=== PATIENT | female | born 1975 | race Caucasian/White ===

== ENCOUNTER → 2016-04-23 | Outpatient (CLI) | payer OTHER ==
[~2016-04-23] MED LIST: ALBUAER19 INH; CETI10TA10 PO; CLR10 PO; HYDR12.55 PO; IBUP1CAP9 PO; LEVO100T7 PO; LEVO125T72 PO; LEVO200T6 PO; MULT-506 PO; OXYC-57 PO; POTA-74 PO
[2016-04-23 16:37] LABS: BLOOD UREA NITROGEN 13 mg/dl (7-18); CALCIUM 8.9 mg/dl (8.5-10.1); CARBON DIOXIDE 27 mmol/L (21-32); CHLORIDE 104 mmol/L (98-107); CREATININE 0.84 mg/dl (0.60-1.20); GLUCOSE 101 mg/dl (70-99); POTASSIUM 4.1 mmol/L (3.5-5.1); SODIUM 140 mmol/L (136-145)
== END | disposition home or self-care (01) ==
LOC: C.LAB 14:55
PROVIDERS: ATTEND Family Medicine
DX: E87.6 Hypokalemia (principal); R53.81 Other malaise; R53.83 Other fatigue

== ENCOUNTER 2016-05-01 09:52 | Day surgery (SDC) | payer OTHER ==
[2016-04-23 14:30] VITALS: BMI 48.0
--- NOTE | 2016-04-23 15:01 | PAT Medication Instructions ---
Service Date Apr 23, 2016. Current Home Medication List Albuterol Inhaler (Ventolin Inhaler), 2 PUFFS INH QID PRN for Shortness of Breath Hydrochlorothiazide (Hydrochlorothiazide), 12.5 MG PO Q2D Ibuprofen (Ibuprofen), 200 MG PO PRN PRN for Pain Levothyroxine Sodium (Levothyroxine Sodium), 1 TAB PO 4 X WEEK Levothyroxine Sodium (Levothyroxine Sodium), 1 TAB PO 3XWEEK Loratadine (Claritin), 10 MG PO QAM Multivitamin (Multivitamin), 1 TAB PO QPM Potassium Chloride (Potassium Chloride Er), 30 MEQ PO Q2D Medication Instructions For Your Scheduled Surgery - Hold the following medications the morning of surgery: Hydrochlorothiazide (Hydrochlorothiazide), 12.5 MG PO Q2D Potassium Chloride (Potassium Chloride Er), 30 MEQ PO Q2D Loratadine (Claritin), 10 MG PO QAM Ibuprofen (Ibuprofen), 200 MG PO PRN PRN for Pain - Take the following medications the morning of surgery with a sip of water OTHERWISE NOTHING TO EAT OR DRINK AFTER MIDNIGHT: Albuterol Inhaler (Ventolin Inhaler), 2 PUFFS INH QID PRN for Shortness of Breath (USE IF NEEDED; BRING TO HOSPITAL) Levothyroxine Sodium (Levothyroxine Sodium) - Take the following medications as scheduled the night before surgery: Multivitamin (Multivitamin), 1 TAB PO QPM Albuterol Inhaler (Ventolin Inhaler), 2 PUFFS INH QID PRN for Shortness of Breath If you have any questions please call us at [phone] or [phone] or [phone]
[2016-04-23 15:59] LABS: BASO % 0.3 %; BASO ABS # 0.02 K/uL (0-0.2); COMPLETE YES; EOS % 2.5 %; HEMATOCRIT 45.5 % (37-47); IG% 0.1 %; LYMPH % 22.3 %; LYMPH ABS # 1.49 K/uL (1.2-3.4); MEAN CELL VOLUME 89.9 fL (80-100); MEAN CORPUSCULAR HEMOGLOBIN 31.2 pg (25-34); MEAN CORPUSCULAR HGB CONC 34.7 g/dl (32-36); MEAN PLATELET VOLUME 10.6 fL (7.4-10.4); MONO % 5.7 %; NEUT % 69.1 %; PLATELET COUNT 195 K/uL (130-400); RED BLOOD COUNT 5.06 M/uL (4.2-5.4); WHITE BLOOD COUNT 6.69 K/uL (4.8-10.8)
[~2016-05-01] VITALS: Ht 162.6 cm; Wt 125.6 kg
[~2016-05-01 09:52] MED LIST changes: +ALBUTEROL HFA INHALER 8.5 GM INH SCH; +ATROPINE SULFATE 0.1 MG/ML 5ML SYR IV PRN; -CETI10TA10 PO; +DEXAMETHASONE SOD INJ 4 MG/ML VIAL ONE; +EpHEDrine SULFATE INJ 50 MG/ML AMP IV PRN; +FENTANYL CITRATE INJ 50 MCG/1 ML 2 ML VIAL ONE; +HYDROmorphone INJ 1 MG/ML SYR IV PRN; +LACTATED RINGER'S 1000ML 1,000 ML IV SCH; -LEVO125T72 PO; +LIDOCAINE HCL 2% 2 ML VIAL (20MG/ML) ONE; +MIDAZOLAM HCL 1 MG/ML 2ML VIAL ONE; +ONDANSETRON INJ 2 MG/ML 2 ML VIAL IV PRN; +ONDANSETRON INJ 2 MG/ML 2 ML VIAL ONE; -OXYC-57 PO; +PROPOFOL IV EMULSION 10 MG/ML 20 ML VIAL IV ONE
[2016-05-01 10:19] VITALS: BMI 47.0
--- NOTE | 2016-05-01 10:19 | History & Physical Bridge Note ---
H&P Re-Evaluation Bridge Note: I have examined the patient, reviewed the History & Physical and in the interval since the performance of the History & Physical I have noted the following changes of clinical significance: No changes noted
[2016-05-01 10:31] VITALS: BMI 47.0
[2016-05-01 10:34] VITALS: BP 126/64; PULSE 80; TEMP 37; O2SAT 96; Ht 162.6 cm; Wt 125.6 kg
[2016-05-01] MEDS ORDERED: IODINE STRONG ONE (10:42)
[2016-05-01] MEDS ORDERED: VASOPRESSIN 20 UNIT/ML VIAL ONE (10:42)
[2016-05-01] MEDS ORDERED: SODIUM CHLORIDE 0.9% 1000ML 1,000 ML IV SCH (11:48)
--- NOTE | 2016-05-01 11:49 | [facility] Post Operative Brief Note ---
Immediate Operative Summary Operative Date May 01, 2016. Pre-Operative Diagnosis Chronic pelvic pain, failed endometrial ablation Post-Operative Diagnosis Chronic pelvic pain, failed endometrial ablation Procedure(s) Performed Exam under anesthesia, dilation and currettage, hysteroscopy Surgeon Dr. Hernandez Summer Counselor Surgeon(s) none Estimated Blood Loss 10 Findings dictated Fluids (cc crystalloids) 600 Specimens A: Endometrial currettings Complication(s) None Disposition Recovery Room / PACU
[2016-05-01] MEDS ORDERED: OXYC-57 PO (11:51)
--- NOTE | 2016-05-01 11:53 | Discharge Instructions ---
Discharge Instructions Admission Reason for Admission: Cervical Stenosis, chronic pelvic pain Discharge Discharge Diagnosis / Problem: same Discharge Goals Goal(s): Routine recovery after surgery Activity Recommendations Activity Limitations: as noted below Lifting Limitations: gradually increase as tolerated Exercise/Sports Limitations: until after follow-up appointment May Resume Sexual Activity: after follow-up appointment Shower/Bathe: no limitations Driving or Machine Use: . Current Hospital Diet Patient's current hospital diet: Discharge Diet Recommended Diet: Regular Diet Procedures Procedures Performed: Exam under anesthesia, dilation and currettage, hysteroscopy Pending Studies Studies pending at discharge: no Medical Emergencies . Who to Call and When: Medical Emergencies: If at any time you feel your situation is an emergency, please call 911 immediately. . Non-Emergent Contact Non-Emergency issues call your: Specialist Call Non-Emergent contact if: you have a fever, your pain is not controlled, wound has increased drainage . . "Provider Documentation" section prepared by Rashi Hernandez. VTE Core Measure Inpt VTE Proph given/why not?: Treatment not indicated
[2016-05-01] MEDS: FENTANYL CITRATE INJ 50 MCG/1 ML 2 ML VIAL IV PRN ×3 (11:56→12:06)
[2016-05-01] MEDS ORDERED: ROCURONIUM BROMIDE 10 MG/ML 5 ML VIAL ONE (11:58)
[2016-05-01] MEDS ORDERED: LIDOCAINE HCL 2% 2 ML VIAL (20MG/ML) ONE (11:58)
[2016-05-01] MEDS ORDERED: KETOROLAC TROMETHAMINE 30 MG/ML VIAL IV. PRN (12:00)
[2016-05-01] MEDS ORDERED: HYDROCODONE/ACETAMOPHEN 5/325MG TAB PO PRN ×2 (12:00)
[2016-05-01] MEDS ORDERED: METOCLOPRAMIDE HCL INJ 5 MG/ML 2 ML VIAL IV PRN (12:00)
[2016-05-01] MEDS ORDERED: OXYCODONE/ACETAMINOPHEN 5-325 TAB PO PRN ×2 (12:00)
[2016-05-01] MEDS ORDERED: ONDANSETRON INJ 2 MG/ML 2 ML VIAL IV PRN (12:00)
[2016-05-01] MEDS ORDERED: IBUPROFEN 600 MG TAB PO PRN (12:00)
--- NOTE | 2016-05-01 12:27 | OPERATIVE REPORT ---
DATE OF OPERATION: 05/01/2016 INDICATION FOR SURGERY: This is a 41-year-old with chronic pelvic pain and cervical stenosis. Pelvic ultrasound showed fluid in the uterus. The patient is status post endometrial ablation 10 years ago. PREOPERATIVE DIAGNOSIS: 1. Chronic pelvic pain. 2. History of endometrial ablation 10 years ago. 3. Ultrasound shows fluid in the uterine cavity. 4. Cervical stenosis. 5. Failed attempt at cervical dilation in the office. POSTOPERATIVE DIAGNOSIS: Same. PROCEDURES: 1. Examination under anesthesia. 2. Dilation and curettage. 3. Hysteroscopy. SURGEON: Rashi Hernandez M.D. QUILLER MACHINE FIXER: None. ESTIMATED BLOOD LOSS: 10 mL. FLUIDS: 600 mL. SPECIMEN: Endometrial curettings. COMPLICATIONS: None. FINDINGS: Normal female escutcheon. Cervix was completely stenotic. The cervix was dilated. The uterine cavity appeared atrophic. Both ostia was identified. There were no masses, polyps, or lesions seen in the uterus. COMPLICATIONS: None. DRAINS: None. DISPOSITION: Stable to recovery room. PROCEDURE: The patient was taken to the operating room where she was prepped and draped in normal sterile fashion in dorsal lithotomy position after time out was called. Bladder was catheterized and 100 mL of clear urine was obtained. A weighted speculum was placed in the vagina. Salas retractor was used to retract the anterior part of the vagina. Single tooth tenaculum was used to grab the anterior part of the cervix. The cervix as described above was completely stenotic. Lacrimal probe was used to do dilate the cervix. Initially dilation resulted in a thick brownish discharge. The dilation was continued until it was able to eventually getting in a size 18. The hysteroscope was introduced into the uterine cavity and findings of the uterus are as dictated above. There were no lesions or masses seen in the uterine cavity. The ostia was identified which confirmed that I was in the uterine cavity. The hysteroscope was removed. Size 2 sharp curette was introduced gently introduced into the uterine cavity and curettage performed in all 4 quadrants until a gritty texture was obtained. The hysteroscope and other instruments were removed from the vagina and the uterus and accounted for x2 including sponges. There is good hemostasis at end of the procedure. The patient was returned to recovery in stable condition. I attest to the content of the Intraoperative Record and any orders documented therein. Any exceptio ns are noted below.
--- NOTE | 2016-05-01 12:28 | Anesthesiology Progress Note ---
Anesthesia Post Op Note Date & Time May 01, 2016 at 12:28 Vital Signs Pain Intensity: 1 Vital Signs Past 12 Hours Date Time Temp Pulse Resp B/P Pulse Ox O2 Delivery O2 Flow Rate FiO2 05/01/16 12:20 72 16 105/71 100 Room Air 05/01/16 12:10 67 11 125/67 100 Mask 10 05/01/16 12:00 66 13 117/71 100 Mask 10 05/01/16 11:51 36.0 72 15 121/78 100 Mask 10 05/01/16 10:34 37.0 80 18 126/64 96 Room Air Notes Mental Status: alert / awake / arousable, participated in evaluation Pt Amnestic to Procedure: Yes Nausea / Vomiting: adequately controlled Pain: adequately controlled Airway Patency, RR, SpO2: stable & adequate BP & HR: stable & adequate Hydration State: stable & adequate Anesthetic Complications: no major complications apparent
[2016-05-01 12:35] VITALS: BP 102/57; PULSE 66; TEMP 36; O2SAT 99
[2016-05-01 13:03] VITALS: BP 102/59; PULSE 68; O2SAT 98
[2016-05-01 13:35] VITALS: BP 105/64; PULSE 70; TEMP 36.9; O2SAT 97
== END 2016-05-01 14:05 | disposition home or self-care (01) ==
LOC: C.ACU 09:52
PROVIDERS: ATTEND Obstetrics & Gynecology
DX: R10.2 Pelvic and perineal pain (principal); G89.29 Other chronic pain; N88.2 Stricture and stenosis of cervix uteri; J45.909 Unspecified asthma, uncomplicated; G47.33 Obstructive sleep apnea (adult) (pediatric); E66.01 Morbid (severe) obesity due to excess calories; Z88.1 Allergy status to other antibiotic agents; Z68.42 Body mass index [BMI] 45.0-49.9, adult; Z90.49 Acquired absence of other specified parts of digestive tract; Z83.3 Family history of diabetes mellitus; Z82.49 Family history of ischemic heart disease and other diseases of the circulatory system; Z80.9 Family history of malignant neoplasm, unspecified; Z98.890 Other specified postprocedural states